=== PATIENT | female | born 1950 | race Caucasian/White ===

== ENCOUNTER → 2016-07-30 | Outpatient (CLI) | payer BC ==
--- NOTE | 2016-07-30 16:22 | KCIC ---
PROCEDURE CT temporal bone without contrast. 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 TECHNIQUE Helical CT scanning of both temporal bones was performed. 1 mm reconstructed axial and coronal small [id number] CT images of each temporal bone were generated and reviewed on a computer monitor. PQRS: One or more the following individualized dose reduction techniques were utilized for the study: 1. Automated exposure control. 2. Adjustment of the mA and/or kV according to patient size. 3. Use of iterative reconstruction technique. COMPARISON None. FINDINGS RIGHT TEMPORAL BONE: The mastoid sinus and aditus ad antrum and epitympanic recess are clear. The middle ear ossicles are identified and no erosion is seen. The scutum appears normal. The middle ear cavity is clear. The vestibulocochlear complex and semicircular canals are morphologically normal in appearance. The internal auditory canal is unremarkable. No osteolytic process is seen. The facial nerve canal is unremarkable. The jugular foramen is unremarkable. The external auditory canal is open. There is mucosal thickening inferiorly in the right sphenoid sinus. LEFT TEMPORAL BONE: The mastoid sinus and aditus ad antrum and epitympanic recess are clear.][The middle ear ossicles are identified and no erosion is seen. The scutum appears normal. The posterior tympanic membrane is not thickened. There is a 4 x 5 millimeter soft tissue density external to the anterior tympanic membrane, image 45 of series 4 and image 22 of series 603. The middle ear cavity is clear. The vestibulocochlear complex and semicircular canals are morphologically normal in appearance. The internal auditory canal is unremarkable.][No osteolytic process is seen. The facial nerve canal is unremarkable.][The jugular foramen is unremarkable. The external auditory canal is open. IMPRESSION 1. There is soft tissue opacity external to the anterior left tympanic membrane. 2. Middle ear cavities are clear. No ossicular erosion. Electronically signed by: Rogelio Angeles MD (July 30, 2016 16:21:42)
== END | disposition home or self-care (01) ==
LOC: KCIC CT 15:14
PROVIDERS: ATTEND Otolaryngology
DX: H90.72 Mixed conductive and sensorineural hearing loss, unilateral, left ear, with unrestricted hearing on the contralateral side (principal)
CPT/HCPCS: 70480